=== PATIENT | female | born 1985 | race African-American/Black ===

== ENCOUNTER 2017-01-11 03:32 | Emergency (ER) | payer MEDICAID ==
[~2017-01-11] VITALS: Ht 188 cm; Wt 210.5 kg
[2017-01-11 03:34] VITALS: BP 129/78; PULSE 114; RESP 18; TEMP 98.9; O2SAT 100
[2017-01-11 03:58] VITALS: BP 150/88; PULSE 92; RESP 15; TEMP 98.3; O2SAT 99
[2017-01-11] MEDS ORDERED: CLON1TAB PO ×2 (04:30→04:31)
--- NOTE | 2017-01-11 04:39 | PD ---
HPI Chief Complaint: Headache Time Seen by Provider: 03:59 Travel History International Travel<30 days: No Contact w/Intl Traveler<30days: No Traveled to known affect area: No History of Present Illness HPI The patient is a 31 year old female who presents to the [facility] emergency department with a history of headache that awoke her from sound sleep at 2:30 AM. She now has a burning sensation in the back of her head associated with a pressure sensation along her occiput. When she got up with a headache she began to feel like she was quite have a panic attack. She then developed chest tightness with difficulty swallowing. She took an anxiety medication prior to arrival. The chest tightness and shortness of breath have resolved. She has had similar headaches in the past. She has been told in the past that the headaches were related to high blood pressure, and then her anemia. She reports that her fatigue with exertion and dyspnea with exertion have improved since being started on iron infusions. Her last iron infusion was one week ago. She is unsure when her last hemoglobin was. She reports that when she became anxious she developed diarrhea. She reports that she had 1 episode of diarrhea prior to arrival. She reports having nausea without vomiting. The patient denies any recent fevers, cough, congestion, neck pain, abdominal pain, urinary symptoms, one-sided weakness, slurred speech, difficulty with word finding ability, facial droop, vision changes, or dizziness. FH: Stroke. PFSH Past Medical History Narrative Medical The patient's past medical history is significant for headaches with elevated blood pressure, anemia, hypertension, panic attacks. Anemia: Yes Anxiety: Yes Cardiovascular Problems: Yes (HBP) Chest Pain: Yes Diminished Hearing: No Hypertension: Yes Immunizations Current: Yes ?: Not LMP: 12/20/16 : 2 Para: 2 Ovarian Cysts: Yes Past Surgical History Surgical History: No Previous Surgery Social History Alcohol Use: No Tobacco Use: No Substance Use: No Allergies-Medications (Allergen,Severity, Reaction): Coded Allergies: No Known Allergies (Unverified Adverse Reaction, Unknown, 01/11/17) Reported Meds & Prescriptions Reported Meds & Active Scripts Active Reported Clonazepam 1 Mg Tab 1 Mg PO BID Review of Systems Except as stated in HPI: all other systems reviewed are Neg General / Constitutional: No: Fever Eyes: No: Visual changes HENT: Positive: Headaches Cardiovascular: Positive: Chest Pain or Discomfort (tightness) Respiratory: No: Shortness of Breath Gastrointestinal: No: Abdominal Pain Genitourinary: No: Dysuria Musculoskeletal: No: Pain Skin: No Rash Neurologic: No: Weakness, Focal Abnormalities, Change in Mentation, Slurred Speech, Sensory Disturbance Psychiatric: No: Depression Endocrine: No: Polydipsia Hematologic/Lymphatic: No: Easy Bruising Physical Exam Narrative General: The patient is a well-developed well-nourished female in no acute distress. Head and Neck exam: Head is normocephalic atraumatic. No scalp tenderness on palpation. Eyes: EOMI, pupils are equal round and reactive to light. Nose: Midline septum with pink mucous membranes Mouth: Dentition unremarkable. Moist mucus membranes. Posterior oropharynx is not erythematous. No tonsillar hypertrophy. Uvula midline. Airway patent. Neck: No palpable lymphadenopathy. No nuchal rigidity. No thyromegaly. No spinous process tenderness to palpation. No step-off or crepitus. No erythema or ecchymosis. Cardiovascular: Regular rate and rhythm without murmurs, gallops, or rubs. Lungs: Clear to auscultation bilaterally. No wheezes, rhonchi, or rales. Abdomen: Soft, without tenderness to palpation in all 4 quadrants of the abdomen. No guarding, rebound, or rigidity. Normal bowel sounds are audible. No tenderness on palpation of McBurney's point. Extremities: No clubbing, cyanosis, or edema. 2+ pulses in all 4 extremities. No calf tenderness on palpation. Back: No spinous process tenderness to palpation. No costovertebral angle tenderness to palpation. Neurologic Exam: Cranial nerves 2-12 were intact on exam. Strength is 5/5 in all 4 extremities. No sensory deficits noted. Skin Exam: No rash noted. Intact skin that is warm and dry. Data Data Last Documented VS Vital Signs Date Time Temp Pulse Resp B/P (MAP) Pulse Ox O2 Delivery O2 Flow Rate FiO2 01/11/17 06:38 80 16 151/80 (103) 99 Room Air 01/11/17 03:58 98.3 Orders Orders Electrocardiogram (01/11/17 04:40) Complete Blood Count With Diff (01/11/17 04:40) Comprehensive Metabolic Panel (01/11/17 04:40) Creatine Kinase (Cpk) (01/11/17 04:40) Ckmb (Isoenzyme) Profile (01/11/17 04:40) Troponin I (01/11/17 04:40) B-Type Natriuretic Peptide (01/11/17 04:40) Prothrombin Time / Inr (Pt) (01/11/17 04:40) Act Partial Throm Time (Ptt) (01/11/17 04:40) Urinalysis - C+S If Indicated (01/11/17 04:40) Magnesium (Mg) (01/11/17 04:40) Chest, Single Ap (01/11/17 04:40) Iv Access Insert/Monitor (01/11/17 04:40) Ecg Monitoring (01/11/17 04:40) Oximetry (01/11/17 04:40) Ed Urine Pregnancytest Poc (01/11/17 04:40) Ct Brain W/O Iv Contrast(Rout) (01/11/17 04:40) Sodium Chlorid 0.9% 500 Ml Inj (Ns 500 M (01/11/17 06:00) Ketorolac Inj (Toradol Inj) (01/11/17 06:00) Ed Discharge Order (01/11/17 06:49) Labs Laboratory Tests Test 01/11/17 04:55 White Blood Count 7.7 TH/MM3 Red Blood Count 4.17 MIL/MM3 Hemoglobin 8.4 GM/DL Hematocrit 27.6 % Mean Corpuscular Volume 66.2 FL Mean Corpuscular Hemoglobin 20.1 PG Mean Corpuscular Hemoglobin Concent 30.4 % Red Cell Distribution Width 20.7 % Platelet Count 396 TH/MM3 Mean Platelet Volume 7.6 FL Neutrophils (%) (Auto) 50.3 % Lymphocytes (%) (Auto) 39.2 % Monocytes (%) (Auto) 7.9 % Eosinophils (%) (Auto) 1.8 % Basophils (%) (Auto) 0.8 % Neutrophils # (Auto) 3.9 TH/MM3 Lymphocytes # (Auto) 3.0 TH/MM3 Monocytes # (Auto) 0.6 TH/MM3 Eosinophils # (Auto) 0.1 TH/MM3 Basophils # (Auto) 0.1 TH/MM3 CBC Comment DIFF FINAL Differential Comment Prothrombin Time 11.6 SEC Prothromb Time International Ratio 1.0 RATIO Activated Partial Thromboplast Time 28.9 SEC Blood Urea Nitrogen 7 MG/DL Creatinine 0.68 MG/DL Random Glucose 93 MG/DL Total Protein 7.3 GM/DL Albumin 2.8 GM/DL Calcium Level 8.2 MG/DL Magnesium Level 1.8 MG/DL Alkaline Phosphatase 67 U/L Aspartate Amino Transf (AST/SGOT) 20 U/L Alanine Aminotransferase (ALT/SGPT) 16 U/L Total Bilirubin 0.2 MG/DL Sodium Level 138 MEQ/L Potassium Level 4.2 MEQ/L Chloride Level 104 MEQ/L Carbon Dioxide Level 25.1 MEQ/L Anion Gap 9 MEQ/L Estimat Glomerular Filtration Rate 121 ML/MIN Total Creatine Kinase 95 U/L Troponin I LESS THAN 0.02 NG/ML B-Type Natriuretic Peptide 12 PG/ML MDM Medical Decision Making Medical Screen Exam Complete: Yes Emergency Medical Condition: Yes Medical Record Reviewed: Yes Interpretation(s) Last Impressions Head CT 01/11/17439 Signed Impressions: Service Date/Time: Wednesday, January 11, 2017 05:07 - CONCLUSION: 1. No evidence of acute intracranial pathology. No masses are identified. Ramone Santana MD Chest X-Ray 01/11/17439 Signed Impressions: Service Date/Time: Wednesday, January 11, 2017 04:41 - CONCLUSION: 1. No acute cardiopulmonary disease. Ramone Santana MD Differential Diagnosis Symptomatic anemia, versus intracranial mass, versus intracranial hemorrhage, versus tension headache, versus migraine headache, versus sinus related headache Narrative Course During the course of the patients emergency department visit, the patients history, examination, and differential diagnosis were reviewed with the patient. The patient was placed on a school lunch monitor with oximetry and frequent blood pressure monitoring. The patient had IV access obtained and blood work sent for analysis. A chest x-ray was ordered, CT scan of the brain was ordered. The patient reports that her chest tightness and shortness of breath have improved. The patient's nausea has resolved. The patient at this point reports having a dull headache in the back of her head. The patients laboratory studies were reviewed and remarkable for a white count of 7.7, hemoglobin 8.4, platelets 396 with a normal differential. CMP is remarkable for calcium of 8.2, CPK 95, troponin I less than 0.02, BNP 12, PT PTT within normal limits. Radiology studies were reviewed and remarkable for a chest x-ray that shows no acute cardiopulmonary disease, CT scan of the brain shows no evidence of acute intracranial pathology, no masses are identified. The patient was given Toradol 15 mg IV for pain, normal saline IV fluids. The patient reported feeling improved. The patient is resting comfortably and feels better, is alert and in no distress. The patients results and examination findings were discussed with the patient. The repeat examination is unremarkable and benign. The history, exam, diagnostic testing, and current condition do not suggest any significant pathology to warrant further testing, continued ED treatment, admission, or surgical evaluation at this point. The vital signs have been stable. The patient does not have uncontrollable pain, intractable vomiting, or other significant symptoms. The patient's condition is stable and appropriate for discharge. The patient will pursue further outpatient evaluation with a primary care physician or other designated or consulting physician as indicated in the discharge instructions. The patient expressed understanding and was agreeable with this plan. Diagnosis Primary Impression: Headache Qualified Codes: R51 - Headache Additional Impression: Panic attack Referrals: Primary Care Physician 2 days Patient Instructions: Acute Headache (ED), General Instructions, Panic Attack ( ED) Med/Other Pt SpecificInfo: No Change to Meds Disposition: 01 DISCHARGE HOME Condition: Stable Uyen Mi MD Jan 11, 2017 04:39
[2017-01-11 05:06] LABS: AUTOMATED NEUTROPHIL # 3.9 TH/MM3 (1.8-7.7); BASOPHIL # 0.1 TH/MM3 (0-0.2); BASOPHIL % 0.8 % (0.0-2.0); EOSINOPHIL # 0.1 TH/MM3 (0-0.4); EOSINOPHIL % 1.8 % (0.0-4.0); HEMATOCRIT 27.6 % (35.0-46.0); HEMO FLAGS DIFF FINAL; LYMPH % 39.2 % (9.0-44.0); MEAN CELL VOLUME 66.2 FL (80.0-100.0); MEAN CORPUSCULAR HEMOGLOBIN 20.1 PG (27.0-34.0); MEAN CORPUSCULAR HGB CONC 30.4 % (32.0-36.0); MONO % 7.9 % (0.0-8.0); NEUT % 50.3 % (16.0-70.0); PLATELET COUNT 396 TH/MM3 (150-450); RED BLOOD COUNT 4.17 MIL/MM3 (4.00-5.30); RED CELL DISTRIBUTION WIDTH 20.7 % (11.6-17.2); WHITE BLOOD COUNT 7.7 TH/MM3 (4.0-11.0)
--- NOTE | 2017-01-11 05:12 | RADRPT ---
EXAM DATE/TIME: 01/11/2017 04:41 [facility] COMPARISON: CHEST SINGLE AP, September 13, 2014, 0:11. INDICATIONS : Headache with shortness of breath MEDICAL HISTORY : Hypertension. SURGICAL HISTORY : None. ENCOUNTER: Initial ACUITY: 1 day PAIN SCORE: 7/10 LOCATION: Bilateral chest FINDINGS: A single view of the chest demonstrates the lungs to be symmetrically aerated without evidence of mas s, infiltrate or effusion. The cardiomediastinal contours are unremarkable. Osseous structures are intact. CONCLUSION: 1. No acute cardiopulmonary disease. Ramone Santana MD on January 11, 2017 at 5:11 Board Certified Radiologist. This report was verified electronically.
[2017-01-11 05:17] LABS: APTT (PATIENT) 28.9 SEC (24.3-30.1); PROTHROMBIN TIME - PATIENT 11.6 SEC (9.8-11.6)
--- NOTE | 2017-01-11 05:19 | RADRPT ---
EXAM DATE/TIME: 01/11/2017 05:07 [facility] COMPARISON: CT BRAIN W/O CONTRAST, June 07, 2015, 15:39. INDICATIONS : Headache. RADIATION DOSE: 49.31 CTDIvol (mGy) MEDICAL HISTORY : Hypertension. morbidly obese SURGICAL HISTORY : None. ENCOUNTER: Initial ACUITY: 1 day PAIN SCALE: 5/10 LOCATION: cranial TECHNIQUE: Multiple contiguous axial images were obtained of the head. Using automated exposure control and adj ustment of the mA and/or kV according to patient size, radiation dose was kept as low as reasonably a chievable to obtain optimal diagnostic quality images. DICOM format image data is available electro nically for review and comparison. FINDINGS: CEREBRUM: The ventricles are normal for age. No evidence of midline shift, mass lesion, hemorrhage or acute in farction. No extra-axial fluid collections are seen. POSTERIOR FOSSA: The cerebellum and brainstem are intact. The 4th ventricle is midline. The cerebellopontine angle i s unremarkable. EXTRACRANIAL: The visualized portion of the orbits is intact. SKULL: The calvaria is intact. No evidence of skull fracture. CONCLUSION: 1. No evidence of acute intracranial pathology. No masses are identified. Ramone Santana MD on January 11, 2017 at 5:17 Board Certified Radiologist. This report was verified electronically.
[2017-01-11 05:33] LABS: ALT (GPT) 16 U/L (10-53)
[2017-01-11 05:37] LABS: ALKALINE PHOSPHATASE 67 U/L (45-117); ANION GAP 9 MEQ/L (5-15); AST (GOT) 20 U/L (15-37); BICARBONATE 25.1 MEQ/L (21.0-32.0); BLOOD UREA NITROGEN 7 MG/DL (7-18); CHLORIDE 104 MEQ/L (98-107); GLOMERULAR FILTRATION RATE 121 ML/MIN (>89); MAGNESIUM 1.8 MG/DL (1.5-2.5); POTASSIUM 4.2 MEQ/L (3.5-5.1); SODIUM (NA) 138 MEQ/L (136-145); TOTAL BILIRUBIN ADULT 0.2 MG/DL (0.2-1.0)
[2017-01-11 05:40] LABS: CREATINE KINASE 95 U/L (26-192)
[2017-01-11] MEDS ORDERED: KETOROLAC TROMETHAMINE 30 MG/ML (IVP) VIAL IV PUSH ONE (06:00)
[2017-01-11] MEDS ORDERED: SODIUM CHLORID 0.9% 500 ML INJ 500 ML IV ONE (06:00)
[2017-01-11 06:38] VITALS: BP 151/80; PULSE 80; RESP 16; O2SAT 99
[2017-01-11 06:55] VITALS: BP 151/80; PULSE 82; RESP 16; TEMP 98.4; O2SAT 100
--- NOTE | 2017-01-11 08:15 | EKG ---
Date Performed: 01/11/2017 Time Performed: 04:50:30 PTAGE: 31 years EKG: Sinus rhythm NORMAL ECG PREVIOUS TRACING : 09/12/2014 21.56 No significant change from previous tracing noted. DOCTOR: Miguelangel Black Interpretating Date/Time 01/11/2017 08:13:53
== END 2017-01-11 06:59 | disposition home or self-care (01) ==
LOC: NEPE 03:32
DX: R51 Headache (principal); F41.0 Panic disorder [episodic paroxysmal anxiety]; R06.02 Shortness of breath; R19.7 Diarrhea, unspecified
CPT/HCPCS: 70450; 71010; 80053; 82550; 83735; 83880; 84484; 84703; 85025; 85610; 85730; 93005; 96374; 99285; J1885; J7040